=== PATIENT | male | born 1995 | race Caucasian/White ===

== ENCOUNTER 2016-11-20 21:39 | Emergency (ER) | payer OTHER ==
[~2016-11-20] VITALS: Ht 172.7 cm; Wt 76.0 kg
[~2016-11-20 21:39] MED LIST: HYDR-3498 PO; IBUP800T25 PO
[2016-11-20 21:42] VITALS: Ht 172.7 cm; Wt 76.0 kg
[2016-11-20] MEDS ORDERED: DOCUSATE SODIUM 100 MG CAP PO ONE (23:00)
[2016-11-21] MEDS ORDERED: SOD CHLORIDE 0.9% 1,000 ML IV ONE
[2016-11-21] MEDS ORDERED: LACTULOSE 30ML CUP PO ONE
[2016-11-21 00:15] LABS: ADD UMIC NO; URINE BILIRUBIN (Dip) NEGATIVE (NEGATIVE); URINE BLOOD (Dip) NEGATIVE (NEGATIVE); URINE COLOR LT. YELLOW (YELLOW); URINE GLUCOSE (Dip) NEGATIVE (NEGATIVE); URINE KETONES (Dip) 40 (NEGATIVE); URINE LEUKOCYTE ESTERASE (Dip) NEGATIVE (NEGATIVE); URINE NITRITE (Dip) NEGATIVE (NEGATIVE); URINE TOTAL PROTEIN (Dip) NEGATIVE (NEGATIVE); URINE UROBILINOGEN (Dip) 1.0 E.U./dL (0.1-1.0)
[2016-11-21 00:40] LABS: ADD SCAN DIFF NO
--- NOTE | 2016-11-21 00:41 | RADRPT ---
PROCEDURE: XR Abdomen. CLINICAL INDICATION: Pain. Constipation. TECHNIQUE: AP abdomen x-ray. COMPARISON: CT abdomen 12/25/2015 FINDINGS: The bowel gas pattern is normal. There is no evidence of obstruction or ileus. There are no abnorm al calcifications overlying the urinary tracts. The osseus structures are unremarkable. IMPRESSION: Unremarkable abdomen radiograph. RPTAT: HMVK .Doyle Collins MD, Date Time Electronically viewed and signed by .Doyle Collins MD, on 11/21/2016 00:40 .K/
[2016-11-21 00:42] LABS: BASOPHILS % 0.2 % (0.0-2.0); HEMOGLOBIN 16.4 g/dl (14.0-18.0); LYMPHOCYTES # 1.2 10^3/ul (0.8-2.9); LYMPHOCYTES % 7.3 % (15.0-51.0); MEAN CORPUSCULAR HEMOGLOBIN 29.9 pg (29.0-33.0); MEAN CORPUSCULAR HGB CONC 34.2 g/dl (32.0-37.0); MEAN CORPUSCULAR VOLUME 87.4 fl (82.0-101.0); MEAN PLATELET VOLUME 11.5 fl (7.4-10.4); MONOCYTES % 6.2 % (0.0-11.0); NEUTROPHIL # 13.4 10^3/ul (1.6-7.5); NEUTROPHILS % 85.6 % (39.0-77.0); PLATELET COUNT 177 10^3/UL (140-415); RED BLOOD COUNT 5.49 10^6/ul (4.70-6.10); RED CELL DISTRIBUTION WIDTH 12.5 % (11.5-14.5); WHITE BLOOD COUNT 15.7 10^3/ul (4.8-10.8)
[2016-11-21 01:02] LABS: ALBUMIN 5.3 g/dl (3.3-4.9); ALBUMIN/GLOBULIN RATIO 1.65; BILIRUBIN,INDIRECT 0.9 mg/dl (0-1.1); BILIRUBIN,TOTAL 0.9 mg/dl (0.2-1.3); CALCIUM 10.1 mg/dl (8.4-10.2); CREATININE 0.98 mg/dl (0.61-1.24); POTASSIUM 3.8 mmol/L (3.5-5.1); TOTAL PROTEIN 8.5 g/dl (6.1-8.1)
--- NOTE | 2016-11-21 02:22 | RADRPT ---
PROCEDURE: CT Abdomen and pelvis without contrast. CLINICAL INDICATION: Abdominal pain. TECHNIQUE: CT scan of the abdomen and pelvis was performed on a multi-detector high-resolution CT scanner. Contiguous axial images were obtained from the lung bases to the ischial tuberosities wit hout intravenous contrast. Coronal and sagittal reformatted images were also obtained. Images were reviewed on the PACS workstation. One or more of the following dose reduction techniques were used: - Automated exposure control. - Adjustment of the mA and/or kV according to patient size. - Use of iterative reconstruction technique. Exam CTD/vol = 9.51 mGy. Total exam DLP = 536.47 mGy-cm. COMPARISON: 12/25/2015. FINDINGS: Evaluation of the lung bases demonstrates no pleural or parenchymal disease. Abdomen: The liver is normal in size. There is no focal mass or dilatation of the biliary tree. T he gallbladder is not distended. The spleen, pancreas and bilateral adrenal glands are within rah l limits. Bilateral kidneys are normal in size with no contour deforming mass identified. There is no radiopaque renal or ureteral calculus identified. There is no hydronephrosis or hydroureter. T here is no retroperitoneal adenopathy. The abdominal aorta is of normal caliber. There is a mildly distended appendix medial to the cecum measuring up to 8 mm in diameter without si gnificant surrounding inflammatory changes. There is no bowel obstruction or free air. There is no diverticulosis or diverticulitis. There is no ascites. Pelvis: The bladder demonstrates mild wall thickening. The prostate and seminal vesicles are withi n normal limits. There is no significant pelvic adenopathy or free fluid. Evaluation of the osseous structures demonstrates no suspicious lytic or blastic lesion. IMPRESSION: Mildly distended appendix medial to the cecum without significant surrounding inflammatory changes. Clinical correlation and follow-up is recommended to exclude appendicitis. Mild bladder wall thickening could suggest cystitis. Clinical correlation is needed. A call report was made to CORI Steiner at 02:21 a.m. .Sarath Phoenix MD, MD Date Time Electronically viewed and signed by .Sarath Phoenix MD, MD on 11/21/2016 02:22 .T/
--- NOTE | 2016-11-21 02:24 | ERD ---
ER Documentation Chief Complaint Date/Time DATE: 11/21/16 TIME: 02:20 Chief Complaint ABD PAIN STARTING TODAY BUT STATES HE'S CONSTIPATED. LAST BM 2 DAYS AGO ROS All systems reviewed and are negative except as per history of present illness. Medications Home Meds Active Scripts Ibuprofen* (Motrin*) 800 Mg Tab, 800 MG PO Q6H Y for PAIN AND OR ELEVATED TEMP, #15 TAB Prov:DALILA RILEY DO 12/25/15 Hydrocodone Bit-Acetaminophen* ([place]*) 5-325 Mg Tab, 1 TAB PO Q6 Y for PAIN, # 7 TAB Prov:DALILA RILEY DO 12/25/15 Reported Medications [None] No Conflict Check 05/27/11 Allergies Allergies: Coded Allergies: No Known Allergy (Unverified , 12/25/15) PMhx/Soc History of Surgery: No Anesthesia Reaction: No Hx Neurological Disorder: No Hx Respiratory Disorders: No Hx Cardiac Disorders: No Hx Psychiatric Problems: No Hx Miscellaneous Medical Probl: No Hx Alcohol Use: Yes Hx Substance Use: Yes (marijuana) Hx Tobacco Use: No Physical Exam Vitals Vital Signs Date Time Temp Pulse Resp B/P Pulse Ox O2 Delivery O2 Flow Rate FiO2 11/21/16 02:30 98.5 69 16 138/79 100 11/20/16 21:42 96.5 67 18 132/63 100 Result Diagram: 11/21/16 0015 11/21/16 0015 Results 24 hrs Laboratory Tests Test 11/21/16 00:01 11/21/16 00:15 Urine Color LT. YELLOW Urine Clarity CLEAR Urine pH 8.0 Urine Specific [place] 1.015 Urine Ketones 40 Urine Nitrite NEGATIVE Urine Bilirubin NEGATIVE Urine Urobilinogen 1.0 E.U./dL Urine Leukocyte Esterase NEGATIVE Urine Hemoglobin NEGATIVE Urine Glucose NEGATIVE% Urine Total Protein NEGATIVE White Blood Count 15.710^3/ul Red Blood Count 5.4910^6/ul Hemoglobin 16.4g/dl Hematocrit 48.0% Mean Corpuscular Volume 87.4fl Mean Corpuscular Hemoglobin 29.9pg Mean Corpuscular Hemoglobin Concent 34.2g/dl Red Cell Distribution Width 12.5% Platelet Count 26352^3/UL Mean Platelet Volume 11.5fl Neutrophils % 85.6% Lymphocytes % 7.3% Monocytes % 6.2% Eosinophils % 0.0% Basophils % 0.2% Nucleated Red Blood Cells % 0.0/100WBC Neutrophils # 13.410^3/ul Lymphocytes # 1.210^3/ul Monocytes # 1.010^3/ul Eosinophils # 0.010^3/ul Basophils # 0.010^3/ul Nucleated Red Blood Cells # 0.010^3/ul Sodium Level 144mmol/L Potassium Level 3.8mmol/L Chloride Level 105mmol/L Carbon Dioxide Level 24mmol/L Anion Gap 19 Blood Urea Nitrogen 12mg/dl Creatinine 0.98mg/dl Glucose Level 98mg/dl Calcium Level 10.1mg/dl Total Bilirubin 0.9mg/dl Direct Bilirubin 0.00mg/dl Indirect Bilirubin 0.9mg/dl Aspartate Amino Transf (AST/SGOT) 34IU/L Alanine Aminotransferase (ALT/SGPT) 52IU/L Alkaline Phosphatase 79IU/L Total Protein 8.5g/dl Albumin 5.3g/dl Globulin 3.20g/dl Albumin/Globulin Ratio 1.65 Lipase 52U/L Current Medications Medications (Trade) Dose Ordered Sig/Kristian Route PRN Reason Start Time Stop Time Status Last Admin Dose Admin Docusate Sodium 100 mg 100 mg ONCE ONCE PO 11/20/16 23:00 11/20/16 23:01 DC 11/20/16 23:25 Sodium Chloride (NS) 1,000 ml @ 1,000 mls/hr Q1H ONCE IV 11/21/16 00:00 11/21/16 00:59 DC 11/21/16 00:08 Lactulose (Enulose) 20 gm ONCE ONCE PO 11/21/16 00:00 11/21/16 00:01 DC 11/20/16 23:50 Departure Diagnosis: Primary Impression: Abdominal pain Abdominal location: lower abdomen, unspecified Qualified Code: R10.30 - Lower abdominal pain Condition: Stable Patient Instructions: Abdominal Pain ANTONIO MICHELLE PA-C Nov 21, 2016 02:24 Abdominal location: lower abdomen, unspecified Qualified Code: R10.30 - Lower abdominal pain Condition: Stable Patient Instructions: Abdominal Pain Additional Instructions: Call your primary care doctor TOMORROW for an appointment during the next 1-2 days.See the doctor sooner or return here if your condition worsens before your appointment time. ANTONIO MICHELLE PA-C Nov 21, 2016 02:24
--- NOTE | 2016-11-21 03:57 | ERA ---
ER Documentation Chief Complaint Date/Time DATE: 11/21/16 TIME: 03:56 Chief Complaint ABD PAIN STARTING TODAY BUT STATES HE'S CONSTIPATED. LAST BM 2 DAYS AGO HPI This is a 21-year-old male with abdominal pain started today. Patient is on the drive over every bump in the road because of the right lower quadrant abdominal pain. Denies any fevers or chills. Mild nausea but no vomiting. Pain is mild to moderate intensity will radiate some localized to the right lower quadrant. No change in bowel or bladder habits. No fevers. No sick contacts. ROS All systems reviewed and are negative except as per history of present illness. Medications Home Meds Active Scripts Ibuprofen* (Motrin*) 800 Mg Tab, 800 MG PO Q6H Y for PAIN AND OR ELEVATED TEMP, #15 TAB Prov:DALILA RILEY DO 12/25/15 Hydrocodone Bit-Acetaminophen* ([place]*) 5-325 Mg Tab, 1 TAB PO Q6 Y for PAIN, # 7 TAB Prov:DALILA RILEY DO 12/25/15 Reported Medications [None] No Conflict Check 05/27/11 Allergies Allergies: Coded Allergies: No Known Allergy (Unverified , 12/25/15) PMhx/Soc History of Surgery: No Anesthesia Reaction: No Hx Neurological Disorder: No Hx Respiratory Disorders: No Hx Cardiac Disorders: No Hx Psychiatric Problems: No Hx Miscellaneous Medical Probl: No Hx Alcohol Use: Yes Hx Substance Use: Yes (marijuana) Hx Tobacco Use: No Physical Exam Vitals Vital Signs Date Time Temp Pulse Resp B/P Pulse Ox O2 Delivery O2 Flow Rate FiO2 11/21/16 02:30 98.5 69 16 138/79 100 11/20/16 21:42 96.5 67 18 132/63 100 Physical Exam Const: [] Head: Atraumatic Eyes: Normal Conjunctiva ENT: Normal External Ears, Nose and Mouth. Neck: Full range of motion..~ No meningismus. Resp: Clear to auscultation bilaterally Cardio: Regular rate and rhythm, no murmurs Abd: Soft, non tender, non distended. Normal bowel sounds Skin: No petechiae or rashes Back: No midline or flank tenderness Ext: No cyanosis, or edema Neur: Awake and alert Psych: Normal Mood and Affect Result Diagram: 11/21/16 0015 11/21/16 0015 Results 24 hrs Laboratory Tests Test 11/21/16 00:01 11/21/16 00:15 Urine Color LT. YELLOW Urine Clarity CLEAR Urine pH 8.0 Urine Specific [place] 1.015 Urine Ketones 40 Urine Nitrite NEGATIVE Urine Bilirubin NEGATIVE Urine Urobilinogen 1.0 E.U./dL Urine Leukocyte Esterase NEGATIVE Urine Hemoglobin NEGATIVE Urine Glucose NEGATIVE% Urine Total Protein NEGATIVE White Blood Count 15.710^3/ul Red Blood Count 5.4910^6/ul Hemoglobin 16.4g/dl Hematocrit 48.0% Mean Corpuscular Volume 87.4fl Mean Corpuscular Hemoglobin 29.9pg Mean Corpuscular Hemoglobin Concent 34.2g/dl Red Cell Distribution Width 12.5% Platelet Count 61887^3/UL Mean Platelet Volume 11.5fl Neutrophils % 85.6% Lymphocytes % 7.3% Monocytes % 6.2% Eosinophils % 0.0% Basophils % 0.2% Nucleated Red Blood Cells % 0.0/100WBC Neutrophils # 13.410^3/ul Lymphocytes # 1.210^3/ul Monocytes # 1.010^3/ul Eosinophils # 0.010^3/ul Basophils # 0.010^3/ul Nucleated Red Blood Cells # 0.010^3/ul Sodium Level 144mmol/L Potassium Level 3.8mmol/L Chloride Level 105mmol/L Carbon Dioxide Level 24mmol/L Anion Gap 19 Blood Urea Nitrogen 12mg/dl Creatinine 0.98mg/dl Glucose Level 98mg/dl Calcium Level 10.1mg/dl Total Bilirubin 0.9mg/dl Direct Bilirubin 0.00mg/dl Indirect Bilirubin 0.9mg/dl Aspartate Amino Transf (AST/SGOT) 34IU/L Alanine Aminotransferase (ALT/SGPT) 52IU/L Alkaline Phosphatase 79IU/L Total Protein 8.5g/dl Albumin 5.3g/dl Globulin 3.20g/dl Albumin/Globulin Ratio 1.65 Lipase 52U/L Current Medications Medications (Trade) Dose Ordered Sig/Kristian Route PRN Reason Start Time Stop Time Status Last Admin Dose Admin Docusate Sodium 100 mg 100 mg ONCE ONCE PO 11/20/16 23:00 11/20/16 23:01 DC 11/20/16 23:25 Sodium Chloride (NS) 1,000 ml @ 1,000 mls/hr Q1H ONCE IV 11/21/16 00:00 11/21/16 00:59 DC 11/21/16 00:08 Lactulose (Enulose) 20 gm ONCE ONCE PO 11/21/16 00:00 11/21/16 00:01 DC 11/20/16 23:50 Procedures/MDM Patient has evidence of early acute appendicitis. Patient will be transferred per IPA physician Dr. Mckinnon Departure Diagnosis: Primary Impression: Abdominal pain Qualified Code: R10.30 - Lower abdominal pain Additional Impression: Acute appendicitis Qualified Code: K35.3 - Acute appendicitis with localized peritonitis Condition: Serious Patient Instructions: Abdominal Pain Additional Instructions: Call your primary care doctor TOMORROW for an appointment during the next 1-2 days.See the doctor sooner or return here if your condition worsens before your appointment time. JM ORDONEZ Nov 21, 2016 03:57
[2016-11-21] MEDS ORDERED: PIPER-TAZO 3.375 GM IV (PMX) 100 ML IVPB ONE (04:00)
[2016-11-21 06:55] VITALS: BP 115/71; PULSE 71; RESP 16; TEMP 98.2
== END 2016-11-21 07:01 | disposition short-term general hospital (02) ==
LOC: FTE 21:39
DX: R10.30 Lower abdominal pain, unspecified (principal); K35.3 Acute appendicitis with localized peritonitis
CPT/HCPCS: 74000; 74176; 80053; 81003; 83690; 85025; J2543; J7030; Z7610; 96374

== ENCOUNTER 2017-07-08 04:29 | Emergency (ER) | END 2017-07-08 07:52 | disposition home or self-care (01) ==

== ENCOUNTER 2017-07-10 16:03 | Emergency (ER) | END 2017-07-10 17:16 | disposition home or self-care (01) ==

== ENCOUNTER 2017-10-03 14:05 | Emergency (ER) | END 2017-10-03 14:26 | disposition home or self-care (01) ==

== ENCOUNTER 2018-03-11 12:55 | Emergency (ER) | END 2018-03-11 14:03 | disposition left against medical advice (07) ==

== ENCOUNTER 2018-11-26 15:23 | Emergency (ER) | payer OTHER ==
[~2018-11-26] VITALS: Ht 170.2 cm; Wt 77.0 kg
[~2018-11-26 15:23] MED LIST changes: +AZIT500T3 PO; +HYDR-4011 PO; +IBUP-1542 PO; -IBUP800T25 PO; +IBUP800T48 PO
[2018-11-26 15:36] VITALS: BP 106/61; PULSE 61; RESP 18; Ht 170.2 cm; Wt 77.0 kg
[2018-11-26] MEDS ORDERED: KETOROLAC 30 MG INJ IM STA (17:19)
[2018-11-26] MEDS ORDERED: DEXAMETHASONE 10 MG/ML 1 ML INJ IM ONE (17:30)
[2018-11-26] MEDS ORDERED: PRED20TA PO (17:38)
[2018-11-26] MEDS ORDERED: IBUP-1542 PO (17:38)
[2018-11-26] MEDS ORDERED: NAPR-985 PO (17:38)
--- NOTE | 2018-11-26 17:43 | ERD ---
ER Documentation Chief Complaint Chief Complaint lower back pain x4 mths, denies any injury or trauma. HPI 23-year-old male with no reported past medical surgical history presents with complaint of lower back pain over the past 4 months. He denies any prior injury or fall. Pain started abruptly 4 months ago resolving and now returned over the past few days with worsening. He otherwise denies radiation to lower extremities, lower extremity numbness or weakness, urinary or bowel incontinence, rash, shortness of breath, chest pain, urinary symptoms, abdominal pain, nausea vomiting diarrhea. At time examination able to ambulate in examination room more than 4 steps without issue. Has not taken any medications for pain control. ROS All systems reviewed and are negative except as per history of present illness. Medications Home Meds Active Scripts Ibuprofen* (Motrin*) 600 Mg Tab, 600 MG PO Q6, #30 TAB Prov:ANDREA HARRIS-C 11/26/18 Naproxen* (Naprosyn*) 500 Mg Tablet, 500 MG PO BID PRN for PAIN AND/OR INFLAMMATION, #30 TAB Prov:ANDREA HARRISC 11/26/18 Prednisone* (Prednisone*) 20 Mg Tab, 40 MG PO DAILY for 4 Days, TAB Prov:ANDREA HARRIS-C 11/26/18 Ibuprofen* (Motrin*) 600 Mg Tab, 600 MG PO Q6, #30 TAB Prov:POLLY SCOTT PA-C 10/03/17 Azithromycin* (Zithromax*) 500 Mg Tablet, 500 MG PO DAILY for 5 Days, TAB Prov:KINZA MOURA MD 07/08/17 Ibuprofen* (Motrin*) 600 Mg Tab, 600 MG PO Q6, #15 TAB Prov:KINZA MOURA MD 07/08/17 Hydrocodone/Acetaminophen ([place] 5-325 Tablet) 1 Each Tablet, 1 TAB PO Q6H PRN for PAIN, #7 TAB Prov:KINZA MOURA MD 07/08/17 Ibuprofen* (Motrin*) 800 Mg Tab, 800 MG PO Q6H PRN for PAIN AND OR ELEVATED TEMP, #15 TAB Prov:DALILA RILEY DO 12/25/15 Hydrocodone Bit-Acetaminophen* ([place]*) 5-325 Mg Tab, 1 TAB PO Q6 PRN for PAIN, #7 TAB Prov:DALILA RILEY DO 12/25/15 Reported Medications [None] No Conflict Check 05/27/11 Allergies Allergies: Coded Allergies: No Known Allergy (Unverified , 03/11/18) PMhx/Soc Medical and Surgical Hx: pt denies Medical Hx, pt denies Surgical Hx History of Surgery: No Anesthesia Reaction: No Hx Neurological Disorder: No Hx Respiratory Disorders: No Hx Cardiac Disorders: No Hx Psychiatric Problems: No Hx Miscellaneous Medical Probl: No Hx Alcohol Use: No Hx Substance Use: No Hx Tobacco Use: No FmHx Family History: No diabetes, No coronary disease, No other Physical Exam Vitals Vital Signs Date Temp Pulse Resp B/P (MAP) Pulse Ox O2 O2 Flow FiO2 Time Delivery Rate 11/26/18 97.8 61 18 106/61 98 15:36 (76) Physical Exam I have reviewed the triage vital signs. Const: Well nourished, well developed, appears stated age Eyes: PERRL, no conjunctival injection HENT: NCAT, Neck supple without meningismus CV: RRR, Warm, well-perfused extremities RESP: CTAB, Unlabored respiratory effort GI: soft, non-tender, non-distended, no masses MSK: No gross deformities appreciated, negative straight leg test Back Exam: Skin: No bruising or rash Compartments: Soft Motor: Normal flexion and extension of bilateral hip/knee/ankle/foot Sensation: Intact to light touch throughout Bones: No midline TTP Skin: Warm, dry. No rashes Neuro: grossly non focal Psych: Appropriate mood and affect. Results 24 hrs Current Medications Medications Dose Sig/Kristian Start Time Status Last (Trade) Ordered Route PRN Stop Time Admin Dose Reason Admin 10 mg ONCE ONCE 11/26/18 DC 11/26/18 Dexamethasone IM 17:30 17:27 (Decadron) 11/26/18 17:31 Ketorolac 30 mg ONCE STAT 11/26/18 DC 11/26/18 Tromethamine IM 17: 17:27 (Toradol) 11/26/18 17:20 Procedures/MDM 23-year-old male who presents with complaint of lower back pain. Symptoms likely secondary to muscle strain. I have low suspicion for acute process warranting further emergent care or work-up. Low suspicion for acute cord compression or cauda equina at this time, given presentation and symptoms, including epidural abscess or hematoma. Patient has no history of malignancy, active or distant history. Patient has no unexplained weight loss. No recent fevers, rigors, malaise, or recent infection. No history of IVDU or skin- popping. Patient does not have any history concerning for saddle anesthesia/perianal sensory loss or complaining of decreased rectal tone. Patient does not have urinary retention or inability to control urine from overflow. Patient has no tenderness overlying spinous process. Patient has no focal weakness on examination. ED course: Toradol, Decadron, will discharge with appropriate pain medication, short course of steroids, strict return precautions explained in detail Given exam and history, low suspicion for cord compression, cauda equina, epidural abscess/hematoma. Distally neurovascularly intact. Query likely musculoskeletal component. Discussed pain control,and follow up with PMD. Cautious return precautions discussed w/ full understanding DISPOSITION PLAN: We discussed follow up with the patient's primary care doctor within 24 to 48 hours. Patient counseled regarding my diagnostic impression and care plan. Prior to discharge all questions answered. Pt agrees with treatment plan and understands strict return precautions. Precautionary instructions provided including instructions to return to the ER if not improving or for any worsening or changing symptoms or concerns. Disclaimer: Inadvertent spelling and grammatical errors are likely due to EHR/dictation software use and do not reflect on the overall quality of patient care. Also, please note that the electronic time recorded on this note does not necessarily reflect the actual time of the patient encounter. Departure Diagnosis: Primary Impression: Back pain Condition: Stable Patient Instructions: Back Pain (Acute Or Chronic) Referrals: [facility] (PCP) Additional Instructions: Call your primary care doctor TOMORROW for an appointment during the next 2-3 days.See the doctor sooner or return here if your condition worsens before your appointment time. ANDREA HARRIS PA-C Nov 26, 2018 17:43
== END 2018-11-26 18:05 | disposition home or self-care (01) ==
LOC: FTE 15:23
DX: M54.5 Low back pain (principal)
CPT/HCPCS: J1100; J1885; 96372